=== PATIENT | female | born 1995 | race Caucasian/White ===

== ENCOUNTER 2021-04-01 18:15 | Emergency (ER) | payer SELFPAY ==
--- OUTSIDE RECORDS SUMMARY | 2021-04-01 18:17 | XMS REPORT | Continuity of Care Document ---
:1995 Author Organization [facility] t Address [address] [place] [address] Care Team Providers Name Role Phone Gallito Mendez Attending Clinician Problems This patient has no known problems. Allergies, Adverse Reactions, Alerts This patient has no known allergies or adverse reactions. Medications This patient has no known medications. Procedures This patient has no known procedures. Encounters Start End Encounter Admission Attending Care Care Encounter Source Date/Time Date/Time Type Type Clinicians Facility Department ID 2019-10-09 2019-10-09 Office LI Ro [id number] 16 12:55:55 13:10:55 Visit [facility] [id number] Surgical [id number] Specialti [id number] [address] Results This patient has no known results.
[2021-04-01 20:49] LABS: Urine Blood 3+ (Negative); Urine Glucose Negative (Negative); Urine Protein 1+ (Negative); Urine Specific Gravity 1.025 (1.005-1.030); Urine pH 5.5 (5.0-7.0)
[2021-04-01 21:33] LABS: Urine Bacteria <20 /HPF (<20); Urine Mucus MOD /HPF (NONE SEEN); Urine RBC 20-50 /HPF (NONE SEEN)
[2021-04-01 22:01] LABS: Urine Specific Gravity/Preg 1.025 (1.005-1.030)
[2021-04-01 22:40] LABS: Absolute Lymphocytes (CBC) 2.1 K/uL (0.7-4.9); Basophils % 0.5 % (0-1.3); Hematocrit 34.8 % (36.0-45.0); Lymphocytes % 23.6 % (15.3-44.8); MPV 9.3 fL (7.6-11.3); RBC Red Blood Cell Count 3.85 M/uL (3.86-4.86)
[2021-04-01 23:00] LABS: BUN Blood Urea Nitrogen 7 mg/dL (7-18); Bicarbonate 24 mmol/L (21-32); Glucose Level 95 mg/dL (74-106); Potassium 3.5 mmol/L (3.5-5.1); Sodium Level 138 mmol/L (136-145)
--- NOTE | 2021-04-01 23:25 | EDPHYS ---
Physician Documentation [facility] Name: Dmitry Rodriguez Age: 25 yrs Sex: Female : 1995 Arrival Date: 04/01/2021 Time: 18:15 Bed DIS11 Private MD: ED Physician Kevin Aguero HPI: 04/01 23:16 This 25 yrs old Female presents to ER via Ambulatory with complaints of deb Vaginal Bleeding, + Preg <12wks. 23:16 The patient presents to the emergency department with vaginal bleeding, that is light, deb that is moderate. The estimated gestational age is 7 weeks. course: care: private OB physician. Previous pregnancies: in previous pregnancies patient has had vaginal delivery. Associated signs and symptoms: The patient has no apparent associated signs or symptoms. The patient has not experienced similar symptoms in the past. 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 - Social history:: Smoking status: Patient denies any tobacco usage or history of. - Family history:: not pertinent. ROS: 23:16 Constitutional: Negative for fever, chills, and weight loss, Eyes: Negative for injury, deb pain, redness, and discharge, ENT: Negative for injury, pain, and discharge, Neck: Negative for injury, pain, and swelling, Cardiovascular: Negative for chest pain, palpitations, and edema, Respiratory: Negative for shortness of breath, cough, wheezing, and pleuritic chest pain, Abdomen/GI: Negative for abdominal pain, nausea, vomiting, diarrhea, and constipation, Back: Negative for injury and pain, MS/Extremity: Negative for injury and deformity, Skin: Negative for injury, rash, and discoloration, Neuro: Negative for headache, weakness, numbness, tingling, and seizure, Psych: Negative for depression, anxiety, suicide ideation, homicidal ideation, and hallucinations, Allergy/Immunology: Negative for hives, rash, and allergies, Endocrine: Negative for neck swelling, polydipsia, polyuria, polyphagia, and marked weight changes, Hematologic/Lymphatic: Negative for swollen nodes, abnormal bleeding, and unusual bruising. 23:16 : Positive for vaginal bleeding. Exam: 23:16 Constitutional: This is a well developed, well nourished patient who is awake, alert, deb and in no acute distress. Head/Face: Normocephalic, atraumatic. Eyes: Pupils equal round and reactive to light, extra-ocular motions intact. Lids and lashes normal. Conjunctiva and sclera are non-icteric and not injected. Cornea within normal limits. Periorbital areas with no swelling, redness, or edema. ENT: Nares patent. No nasal discharge, no septal abnormalities noted. Tympanic membranes are normal and external auditory canals are clear. Oropharynx with no redness, swelling, or masses, exudates, or evidence of obstruction, uvula midline. Mucous membranes moist. Neck: Trachea midline, no thyromegaly or masses palpated, and no cervical lymphadenopathy. Supple, full range of motion without nuchal rigidity, or vertebral point tenderness. No Meningismus. Chest/axilla: Normal chest wall appearance and motion. Nontender with no deformity. No lesions are appreciated. Cardiovascular: Regular rate and rhythm with a normal S1 and S2. No gallops, murmurs, or rubs. Normal PMI, no JVD. No pulse deficits. Respiratory: Lungs have equal breath sounds bilaterally, clear to auscultation and percussion. No rales, rhonchi or wheezes noted. No increased work of breathing, no retractions or nasal flaring. Abdomen/GI: Soft, non-tender, with normal bowel sounds. No distension or tympany. No guarding or rebound. No evidence of tenderness throughout. Back: No spinal tenderness. No costovertebral tenderness. Full range of motion. Skin: Warm, dry with normal turgor. Normal color with no rashes, no lesions, and no evidence of cellulitis. MS/ Extremity: Pulses equal, no cyanosis. Neurovascular intact. Full, normal range of motion. Neuro: Awake and alert, GCS 15, oriented to person, place, time, and situation. Cranial nerves II-XII grossly intact. Motor strength 5/5 in all extremities. Sensory grossly intact. Cerebellar exam normal. Normal gait. Psych: Awake, alert, with orientation to person, place and time. Behavior, mood, and affect are within normal limits. Vital Signs: 20:31 BP 124 / 79; Pulse 76; Resp 16; Temp 97.7; Pulse Ox 100% on R/A; Weight 70.31 kg (R); lp1 Height 5 ft. 5 in. (165.10 cm); Pain 2/10; 23:35 BP 105 / 59 RA Sitting (auto/reg); Pulse 72; Resp 16; Temp 98.1(TE); Pulse Ox 98% on tt3 R/A; 20:31 Body Mass Index 25.79 (70.31 kg, 165.10 cm) lp1 MDM: 22:57 Patient medically screened. deb 23:21 Differential diagnosis: threatened Ab. Data reviewed: vital signs, nurses notes, lab edb test result(s), radiologic studies, ultrasound. 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 Test interpretation: by ED physician or midlevel provider: ECG, plain radiologic studies. Counseling: I had a detailed discussion with the patient and/or guardian regarding: the historical points, exam findings, and any diagnostic results supporting the discharge/admit diagnosis, lab results, radiology results, the need for outpatient follow up, an OB/Gyne specialist. 04/01 20:49 Order name: Urine Dipstick-Ancillary; Complete Time: 22:58 EDNY 04/01 20:59 Order name: Urine Microscopic Only; Complete Time: 22:58 tt3 04/01 20:59 Order name: Urine Culture tt3 04/01 21:02 Order name: Urine --Ancillary (enter results) tt3 04/01 21:02 Order name: Urine --Ancillary; Complete Time: 22:58 EDNY 04/01 22:13 Order name: Abo/rh Typing; Complete Time: 23:25 1 04/01 20:34 Order name: Urine Dipstick-Ancillary (obtain specimen) 1 04/01 20:34 Order name: Urine Test (obtain specimen) 1 04/01 20:34 Order name: US Transvaginal Ob 1 04/01 22:13 Order name: Basic Metabolic Panel; Complete Time: 23:16 lp1 04/01 22:13 Order name: CBC with Diff; Complete Time: 22:58 lp1 04/01 22:13 Order name: IV Saline Lock lp1 04/01 22:13 Order name: Labs collected and sent lp1 04/01 22:13 Order name: NPO lp1 Administered Medications: No medications were administered Disposition Summary: 04/01/21 23:24 Discharge Ordered Location: Home deb Problem: new deb Symptoms: have improved deb Condition: Stable deb Diagnosis - Threatened deb - 8 weeks gestation of deb Followup: deb - With: Private Physician - When: 2 - 3 days - Reason: Recheck today's complaints, Continuance of care, Re-evaluation by your physician Followup: deb - With: Arie Ruiz MD - When: 2 - 3 days - Reason: Recheck today's complaints, Continuance of care, Re-evaluation by your physician Discharge Instructions: - Discharge Summary Sheet deb - Care deb - Threatened Miscarriage deb - Vaginal Bleeding During , First Trimester deb - First Trimester of , [id number] deb - First Trimester of deb - Threatened Miscarriage, [id number] deb Forms: - Medication Reconciliation Form deb - Thank You Letter deb - Antibiotic Education deb - Prescription Opioid Use deb Signatures: Dispatcher [employer] EDKevin Wellington MD MD cha Pena, Laura, RN RN lp1
--- NOTE | 2021-04-01 23:25 | ER ---
Nurse's Notes [facility] Name: Dmitry Rodriguez Age: 25 yrs Sex: Female : 1995 Arrival Date: 04/01/2021 Time: 18:15 Bed DIS11 Private MD: Diagnosis: Threatened ;8 weeks gestation of Presentation: 04/01 20:28 Chief complaint: Patient states: Vaginal bleeding that began about 1800 this evening, lp1 bright red, and brown; reports about 8 weeks ; Reports low back pain. Coronavirus screen: Client denies travel out of the [place] in the last 14 days. At this time, the client does not indicate any symptoms associated with coronavirus-19. Ebola Screen: No symptoms or risks identified at this time. Risk Assessment: Do you want to hurt yourself or someone else? Patient reports no desire to harm self or others. Onset of symptoms was April 01, 2021 at 18:00. 20:28 Method Of Arrival: Ambulatory lp1 20:28 Acuity: SUZY 3 lp1 20:31 Initial Sepsis Screen: Does the patient meet any 2 criteria? No. Patient's initial lp1 sepsis screen is negative. Does the patient have a suspected source of infection? No. Patient's initial sepsis screen is negative. Triage Assessment: 20:32 General: Appears in no apparent distress. Behavior is calm, cooperative. Pain: lp1 Complains of pain in lumbar area. : Reports vaginal bleeding that is bright red, moderate flow. 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 - Social history:: Smoking status: Patient denies any tobacco usage or history of. - Family history:: not pertinent. Screenin:31 Abuse screen: Denies threats or abuse. Denies injuries from another. Nutritional lp1 screening: No deficits noted. Tuberculosis screening: No symptoms or risk factors identified. Fall Risk None identified. Assessment: 23:41 Reassessment: pt seen by this RN at discharge pt is A\T\O x 4, resp unlabored, pt bb verbalized understanding of and agrees to plan of care discharge instructions given pt ambulated with steady gait to exit accompanied by family. Vital Signs: 20:31 BP 124 / 79; Pulse 76; Resp 16; Temp 97.7; Pulse Ox 100% on R/A; Weight 70.31 kg (R); lp1 Height 5 ft. 5 in. (165.10 cm); Pain 2/10; 23:35 BP 105 / 59 RA Sitting (auto/reg); Pulse 72; Resp 16; Temp 98.1(TE); Pulse Ox 98% on tt3 R/A; 20:31 Body Mass Index 25.79 (70.31 kg, 165.10 cm) lp1 ED Course: 18:15 Patient arrived in ED. mr 20:30 Triage completed. lp1 20:30 Arm band placed on. lp1 21:53 US Transvaginal Ob In Process Unspecified. EDHI 22:02 Kevin Aguero MD is Attending Physician. [facility] 23:24 Arie Ruiz MD is Referral Physician. [facility] 23:41 Patient has correct armband on for positive identification. bb 23:41 No provider procedures requiring assistance completed. bb 23:45 Patient did not have IV access during this emergency room visit. bb Administered Medications: No medications were administered Outcome: 23:24 Discharge ordered by . [facility] 23:41 Discharged to home ambulatory, with family. bb 23:41 Condition: stable 23:41 Discharge instructions given to patient, family, Instructed on discharge instructions, follow up and referral plans. Demonstrated understanding of instructions, follow-up care. 23:45 Patient left the ED. bb Signatures: Dispatcher [employer] Kevin Mares MD MD cha Rivera, Mary mr Radha Mack RN RN bb Jessica Whalen RN RN lp1 Devante Borden tt3 Corrections: (The following items were deleted from the chart) 20:31 20:28 Chief complaint: Patient states: Vaginal bleeding that began about 1800 this lp1 evening, bright red, and brown; reports about 8 weeks lp1
[2021-04-01 23:52] VITALS: BP 105/59; TEMP 98.1; O2SAT 98
--- NOTE | 2021-04-02 08:43 | RAD REPORT ---
EXAM DESCRIPTION: US - Transvaginal OB - 04/01/2021 9:53 pm CLINICAL HISTORY: VAGINAL BLEEDING COMPARISON: No comparisons FINDINGS: A single gestational sac is seen within the uterus. The shape of the sac is within normal limits for gestational age. Within the sac is a single pole with crown-rump length of 9 mm, cor relating to estimated gestational age of 7 weeks 0 days. Estimated date of delivery is 11/18/2021. Heart rate is 148 BPM. The placenta is not yet developed due to early gestational age. The maternal adnexa and left ovary are within normal limits. Normal Doppler blood flow was demonstrat ed to the left ovary. The right ovary is obscured by bowel gas. IMPRESSION: Single live early intrauterine gestation with estimated gestational age of 7 weeks 0 day s, TRIP 11/18/2021. The right ovary is obscured by bowel gas.
== END 2021-04-01 23:45 | disposition home or self-care (01) ==
LOC: ER 18:15
DX: O20.0 Threatened abortion (principal); Z3A.08 8 weeks gestation of pregnancy
CPT/HCPCS: 36415; 76817; 80048; 81003; 81015; 81025; 85025; 86900; 86901; 87086; 87088; 99283

== ENCOUNTER 2021-11-05 03:58 | Inpatient (IN) | payer OTHER ==
[2021-11-03 15:45] LABS: Absolute Lymphocytes (CBC) 1.7 K/uL (0.7-4.9); Hematocrit 32.6 % (36.0-45.0); Lymphocytes % 14.7 % (15.3-44.8); MPV 9.4 fL (7.6-11.3); RBC Red Blood Cell Count 3.79 M/uL (3.86-4.86)
[2021-11-03 15:47] LABS: Protime INR 0.96
--- NOTE | 2021-11-03 19:07 | PREOPHP ---
Date of Admission: 11/05/2021 History: A 26-year-old 2, para 1, previous for repeat section. Infection ; blood loss; anesthetic complications; injury to bladder, bowel, ureter; postoperative complications ; clots in legs; pneumonia discussed. The patient knows fully well. This does not constitute all th e possible problems that could occur during or following surgery. Family History: She has a grandparent with lung cancer. Maternal grandfather with diabetes. Past Medical History: No serious medical illnesses. Chlamydia in 2018. Allergies: NO ALLERGIES. Medications: No medications prior to admission, although she does admit she smokes THC occasionally and cigarettes occasionally. Physical Examination: HEENT: Clear pupils equal, round, reactive to light and accommodation. Conjunctivae well perfused. No oral, lingual, or buccal lesions. Chest: Clear. Heart: Without murmurs, thrills, heaves, or rubs. Breasts: Without masses on previous visits. Abdomen: Term size and effects. First baby was premature, weight 5 pounds 5 ounces. This was in ex cess of 9 pounds according to high-risk consultation and according to clinical exam. Cervix is close d. Baby is vertex still fairly high. Extremities: Clear without edema, cyanosis, or clubbing. Assessment/plan: She will be 39 weeks this Monday and we will Proceed with repeat section at that time. DANNIELLE/VAISHNAVI Voice ID: [id number]
[2021-11-03 23:03] LABS: RPR (Rapid Plasma Reagin) NON-REACT (NON-REACT)
[~2021-11-05 03:58] MED LIST: CEFAZOLIN 1 GM in NA CHLORIDE 0.9% 50 ML IVPB SCH; FAMOTIDINE 20 MG/2 ML VIAL IV ONE; METOCLOPRAMIDE 10 MG/2mL INJ IV SCH; NA CIT/CITRIC AC 30 ML ORAL UDC PO ONE; Ringers Lactate 1,000 ML IV PRN; Ringers Lactate 1,000 ML IV SCH
--- OUTSIDE RECORDS SUMMARY | 2021-11-05 04:00 | XMS REPORT | Continuity of Care Document ---
:1995 Author Organization [facility] t Address [address] [place] [address] Care Team Providers Name Role Phone ONEIDA_Yuli Attending Clinician Unavailable Gallito Mendez Attending Clinician LEE Admitting Clinician Unavailable Payers Payer Name Policy Type Policy Number Effective Date Expiration Date S ource Problems This patient has no known problems. Allergies, Adverse Reactions, Alerts This patient has no known allergies or adverse reactions. Medications This patient has no known medications. Procedures This patient has no known procedures. Encounters Start End Encounter Admission Attending Care Care Encounter Source Date/Time Date/Time Type Type Clinicians Facility Department ID 2021-03-18 2021-03-18 Outpatient [facility] [address] [place] 04:00:00 04:00:00 0729 [facility] 2019-10-09 2019-10-09 Office LI Ro [id number] 16 12:55:55 13:10:55 Visit [facility] [id number] Surgical [id number] Specialti [id number] [address] [place] Results This patient has no known results.
[2021-11-05 05:12] VITALS: BMI 32.4
[2021-11-05] MEDS ORDERED: CEFAZOLIN 2 GM in NA CHLORIDE 0.9% 100 ML IVPB ONE (06:00)
[2021-11-05] MEDS ORDERED: CEFAZOLIN 1 GM in NA CHLORIDE 0.9% 50 ML IVPB SCH (06:00)
[2021-11-05 06:02] LABS: Urine Appearance CLOUDY (Clear); Urine Bilirubin NEGATIVE (Negative); Urine Blood NEGATIVE (Negative); Urine Color YELLOW (Yellow); Urine Glucose NEGATIVE (Negative); Urine Protein NEGATIVE (Negative); Urine Urobilinogen 0.2 mg/dL (0.2-1.0); Urine pH 6.5 (5.0-7.0)
[2021-11-05] MEDS ORDERED: CEFAZOLIN SODIUM 1 GM/VIAL ONE (06:05)
[2021-11-05] MEDS ORDERED: NA CHLORIDE 0.9% 0 ML ONE (06:06)
[2021-11-05 06:09] LABS: Urine Microscopic Reflex ORDER UMIC
[2021-11-05 06:18] LABS: Urine Bacteria <20 /HPF (<20); Urine RBC <5 /HPF (NONE SEEN)
[2021-11-05] MEDS ORDERED: NA CHLORIDE 0.9% 100 ML ONE (06:31)
[2021-11-05 06:58] VITALS: O2SAT 99
[2021-11-05] MEDS ORDERED: METHYLERGONOVINE 0.2MG/ML AMP IM ONE (07:02)
[2021-11-05] MEDS ORDERED: CARBOPROST TROME 250 MCG/ML IM ONE (07:02)
[2021-11-05] MEDS ORDERED: BUPIVACAINE 0.75% (PF) 2 ML SP ONE (07:23)
[2021-11-05] MEDS ORDERED: OXYTOCIN 10 UNIT/ML ML ONE (07:23)
[2021-11-05] MEDS ORDERED: MORPHINE SULFATE/PF 1 MG/ML (10 ML AMP) ONE (07:23)
[2021-11-05] MEDS ORDERED: LIDOCAINE 1% MPF 5 ML VIAL ONE (07:25)
[2021-11-05] MEDS ORDERED: EPHEDRINE SULF 50 MG/ML VIAL ONE (07:41)
[2021-11-05] MEDS ORDERED: Phenylephrine HCl 10 MG/ML 1 ML VIAL ONE (08:09)
[2021-11-05] MEDS ORDERED: ONDANSETRON 4 MG (ODT) TAB PO PRN (08:25)
[2021-11-05] MEDS ORDERED: KETOROLAC 30 MG/ML INJ IV PRN (08:25)
[2021-11-05] MEDS ORDERED: ACETAMINOPHEN 500 MG TAB PO PRN ×2 (08:25)
[2021-11-05] MEDS ORDERED: IBUPROFEN 200 MG TAB PO PRN (08:25)
[2021-11-05] MEDS ORDERED: Oxycodone HCl/Acetaminophen 1 TAB TAB PO PRN (08:25)
[2021-11-05] MEDS ORDERED: BISACODYL 10 MG RECTAL SUPP PR PRN (08:25)
[2021-11-05] MEDS ORDERED: ONDANSETRON 4 MG/2 ML VIAL IV PRN ×2 (08:25→08:41)
[2021-11-05] MEDS ORDERED: DIPHENHYDRAMINE 25 MG TAB/CAP PO PRN (08:25)
--- NOTE | 2021-11-05 08:55 | OP ---
Surgeon: Arie Ruiz MD General Practice: Dr. García. Anesthesiologist: Dr. Julien. Indications: A 26-year-old female at 39 weeks. Repeat section. Full preoperativ e counseling concerning procedure including infection; blood loss; anesthetic complications; injury t o bladder, bowel, ureter; postoperative complications; clots in legs and pneumonia. The patient know s fully well that this does not constitute all the possible problems that could occur during or follo wing surgery. Anesthesia: Spinal block anesthesia. Procedure In Detail: After adequate prepping and draping, time-out was performed. At this point, in cision was created across the previous incision line. The incision was carried to the fascia and the fascia was incised transversely. The patient was noted to have a very thin fascia, but still fascia l development was performed. Anterior and posterior fascial planes were developed. Peritoneal defec t was seen and entered. Low transverse bladder flap developed. Low transverse uterine incision crea coral. An 8-pound 8-ounce male infant delivered without difficulties, Apgars 9 and 9. Cord blood and specimen obtained. Placenta removed manually. Uterus cleared of clot and blood and exteriorized. 0 .2 mg of Methergine IM was not given. IV drip Pitocin was sufficient. Estimated blood loss during t he procedure, 750 cc. Cervical os dilated with ring clamp. Uterus closed with a running lock stitch of 1 chromic followed by 2 [id number] stitches in the right angle for complete hemostasis. [place] betina replaced in the peritoneal cavity. Gutters cleared of clot and blood. Reinspection of suture li ne showed no further bleeding. The rectus muscles were reapproximated using 2 stitches with 0 Vicryl . The fascia was then closed using 1 Vicryl running from either angle to the midline. Subcutaneous tissue closed with 2-0 plain. Raffi used for the skin. The patient had been given 2 g of Ancef. Tolerated all procedures well. Transferred back to her room in good condition. Final Diagnoses: Repeat section, spinal block anesthesia. DANNIELLE/MODAbhijit Voice ID: [id number] Report ID: [id number]
[2021-11-05] MEDS ORDERED: D5LR 1,000 ML with OXYTOCIN 20 UNIT IV SCH ×2 (09:00)
[2021-11-05] MEDS: OXYTOCIN/LR 20 UNIT/1,000 ML BAG IV SCH (09:13)
[2021-11-05] MEDS: Oxycodone HCl/Acetaminophen 1 TAB TAB PO PRN ×2 (11:19→17:17)
[2021-11-05] MEDS ORDERED: NALOXONE 0.4 MG/ML VIAL SQ PRN ×2 (14:03→14:15)
[2021-11-05] MEDS ORDERED: PROMETHAZINE 25 MG TABLET PO PRN (14:04)
[2021-11-05] MEDS ORDERED: PROMETHAZINE INJ 25 MG/ML AMP IV PRN (14:16)
[2021-11-05] MEDS ORDERED: CEFAZOLIN/SWI 2gm 2 GM/20 ML SYR IV ONE (16:00)
[2021-11-05] MEDS ORDERED: D5LR 1,000 ML IV ONE (16:58)
[2021-11-06] MEDS: OXYTOCIN/LR 20 UNIT/1,000 ML BAG IV SCH (00:36)
[2021-11-06] MEDS: Oxycodone HCl/Acetaminophen 1 TAB TAB PO PRN (02:56)
[2021-11-06 07:09] VITALS: BP 109/55; TEMP 97.5
[2021-11-06] MEDS ORDERED: MAGNESIUM HYDROXIDE 8% 30 ML PO PRN (08:25)
[2021-11-06] MEDS ORDERED: METHYLERGONOVINE 0.2MG/ML AMP IM ONE (12:24)
--- NOTE | 2021-11-07 01:54 | DS ---
Date of Discharge: 11/06/2021 Hospital Course: Postoperatively, is doing exceptionally well, ambulated same day of surgery. She i s requesting to go home this afternoon. 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 Once the bab y's tests are done, if patient still wants to go home, we will let her go. We will call her in for s ome tramadol for analgesia. She is to call my office on Monday and see me. She already has her appo intment to see me on Monday for staple removal. She is to report any temperature elevation of 100 de grees or greater, severe pain, heavy bleeding, or any other type of abnormalities. H and H postop ex pected change. Lochia is normal. This morning, patient has absolutely no complaints. Wants to go h ome as stated. She has already had her Tdap shot. Rh positive, immune to Rubella. Final Diagnoses: Term intrauterine 39 weeks. Repeat section. Spinal block anest hesia. DANNIELLE/VAISHNAVI Voice ID: [id number] Report ID: [id number]
[2021-11-08 18:27] LABS: HBsAG Nonreactive (Nonreactive)
== END 2021-11-06 13:00 | disposition home or self-care (01) | DRG 788 ==
LOC: 2ND-WC 03:58
PROVIDERS: ADMIT Specialist; ATTEND Specialist
PROC: 10D00Z1 Extraction of Products of Conception, Low, Open Approach (ICD-10-PCS; principal; 2021-11-05 07:30)
DX: O34.211 Maternal care for low transverse scar from previous cesarean delivery (principal); Z3A.39 39 weeks gestation of pregnancy; Z37.0 Single live birth; Z20.822 Contact with and (suspected) exposure to COVID-19
CPT/HCPCS: 36415; 81003; 81015; 85014; 85025; 85610; 85730; 86592; 86850; 86900; 86901; 87340; 88307; J0690; J2210; J2370; J2405; J2550; J2590; J2765; J7120; J7121; U0003

== ENCOUNTER 2022-05-13 02:09 | Emergency (ER) | payer OTHER ==
--- OUTSIDE RECORDS SUMMARY | 2022-05-13 02:11 | XMS REPORT | Continuity of Care Document ---
:1995 Author Organization [facility] t Address [address] [place] [address] Care Team Providers Name Role Phone LEE Attending Clinician Unavailable Nir Mendez Attending Clinician LEE Admitting Clinician Unavailable [...] Facility Department ID 2021-03-18 2021-03-18 Outpatient [facility]EE [facility] [id number]- [address] [place] 04:00:00 04:00:00 [facility] 2019-10-09 2019-10-09 Office LI Ro [id number] 16 12:55:55 13:10:55 Visit [facility] [id number] Surgical [id number] Specialti [id number] [address] [place] Results This patient has no known results.
[2022-05-13 02:43] LABS: Urine Blood Negative (Negative); Urine Glucose Negative (Negative); Urine Protein Negative (Negative); Urine Specific Gravity >=1.030 (1.005-1.030); Urine pH 5.5 (5.0-7.0)
[2022-05-13 03:23] LABS: Absolute Lymphocytes (CBC) 2.9 K/uL (0.7-4.9); Lymphocytes % 23.5 % (15.3-44.8); MCV 87.7 fL (80-100); MPV 8.5 fL (7.6-11.3); RBC Red Blood Cell Count 4.45 M/uL (3.86-4.86)
[2022-05-13] MEDS ORDERED: ONDANSETRON 4 MG/2 ML VIAL ONE (03:24)
[2022-05-13] MEDS ORDERED: HYDROMORPHONE HCL 0.5 MG/0.5 ML INJ ONE (03:24)
[2022-05-13 03:36] LABS: Albumin 4.1 g/dL (3.4-5.0); Bilirubin Total 0.2 mg/dL (0.2-1.0); Potassium 3.6 mmol/L (3.5-5.1); Protein, Total 7.7 g/dL (6.4-8.2)
--- NOTE | 2022-05-13 04:53 | ER ---
Nurse's Notes [facility] Name: Dmitry Rodriguez Age: 26 yrs Sex: Female : 1995 Arrival Date: 05/13/2022 Time: 02:12 Bed Treatment Private MD: Diagnosis: Right upper quadrant pain;Nausea with vomiting, unspecified Presentation: 05/13 02:25 Chief complaint: Patient states: "I am pretty sure it is my gallbladder. I was suppose tw5 to see Dr. Jo today, but he had an emergency and had to reschedule me to Monday. The pain is only getting worse and I cannot make it to Monday. ". Coronavirus screen: Vaccine status: Patient reports being unvaccinated. Ebola Screen: Patient negative for fever greater than or equal to 101.5 degrees Fahrenheit, and additional compatible Ebola Virus Disease symptoms Patient denies exposure to infectious person. Patient denies travel to an Ebola-affected area in the 21 days before illness onset. Initial Sepsis Screen: Does the patient meet any 2 criteria? No. Patient's initial sepsis screen is negative. Does the patient have a suspected source of infection? No. Patient's initial sepsis screen is negative. Risk Assessment: Do you want to hurt yourself or someone else? Patient reports no desire to harm self or others. Onset of symptoms was May 12, 2022 at 22:00. 02:25 Method Of Arrival: Ambulatory tw5 02:25 Acuity: SUZY 3 tw5 Triage Assessment: 02:29 General: Appears uncomfortable, Behavior is restless. Pain: Complains of pain in right tw5 upper quadrant Pain currently is 10 out of 10 on a pain scale. GI: Reports lower abdominal pain. 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 - Social history:: Smoking status: Patient denies any tobacco usage or history of. Screenin:19 Abuse screen: Denies threats or abuse. Denies injuries from another. Nutritional lg3 screening: No deficits noted. Tuberculosis screening: No symptoms or risk factors identified. Fall Risk None identified. Assessment: 03:19 General: Appears distressed, uncomfortable, Behavior is cooperative, crying. Pain: lg3 Complains of pain in abdomen and right upper quadrant Pain currently is 10 out of 10 on a pain scale. Noted to be crying, grimacing, guarding, moaning, resistant to movement, restless. Neuro: No deficits noted. Level of Consciousness is awake, alert, obeys commands, Oriented to person, place, time, situation. Cardiovascular: No deficits noted. Denies chest pain, shortness of breath, Capillary refill < 3 seconds Clubbing of nail beds is absent JVD is absent Patient's skin is warm and dry. Respiratory: No deficits noted. Airway is patent Trachea midline Respiratory effort is even, unlabored, Respiratory pattern is regular, symmetrical, Breath sounds are clear bilaterally. GI: Abdomen is round non-distended, Bowel sounds present X 4 quads. Abd is soft X 4 quads Abdomen is tender to palpation in right upper quadrant Guarding noted in right upper quadrant Reports upper abdominal pain, cramping, epigastric pain, nausea. : No deficits noted. No signs and/or symptoms were reported regarding the genitourinary system. EENT: No deficits noted. No signs and/or symptoms were reported regarding the EENT system. Derm: No deficits noted. No signs and/or symptoms reported regarding the dermatologic system. Skin is intact, is healthy with good turgor, Skin is dry, Skin is normal, Skin temperature is warm. Musculoskeletal: No deficits noted. No signs and/or symptoms reported regarding the musculoskeletal system. Circulation, motion, and sensation intact. Range of motion: intact in all extremities. 05:23 Reassessment: Patient appears in no apparent distress at this time. No changes from lg3 previously documented assessment. Patient and/or family updated on plan of care and expected duration. Pain level reassessed. Patient is alert, oriented x 3, equal unlabored respirations, skin warm/dry/pink. Patient states symptoms have improved. Vital Signs: 02:25 BP 116 / 70; Pulse 71; Resp 18; Temp 97.6; Pulse Ox 100% on R/A; Weight 76.2 kg; Height tw5 5 ft. 5 in. (165.10 cm); Pain 10/10; 05:23 BP 121 / 74; Pulse 68; Resp 17 S; Pulse Ox 100% on R/A; lg3 02:25 Body Mass Index 27.96 (76.20 kg, 165.10 cm) tw5 ED Course: 02:12 Patient arrived in ED. bp1 02:19 Gerardo Macdonald DO is Attending Physician. ms3 02:29 Triage completed. tw5 03:19 Patient has correct armband on for positive identification. Bed in low position. Call lg3 light in reach. Side rails up X 1. Client placed on continuous cardiac and pulse oximetry monitoring. NIBP monitoring applied. Door closed. Noise minimized. Warm blanket given. 03:19 Inserted saline lock: 20 gauge in left antecubital area, using aseptic technique. Blood lg3 collected. 03:21 Arm band placed on. lg3 03:25 Lisa Lara, PARAM is Primary Nurse. lg3 03:45 Abdomen Exam Limited In Process Unspecified. EDMS 04:52 Elias Jo MD is Referral Physician. ms3 05:23 No provider procedures requiring assistance completed. IV discontinued, intact, lg3 bleeding controlled, No redness/swelling at site. Pressure dressing applied. Administered Medications: 03:18 Drug: Zofran (Ondansetron) 4 mg Route: IVP; Site: left antecubital; lg3 05:25 Follow up: Response: No adverse reaction; Nausea is decreased lg3 03:18 Drug: Dilaudid (HYDROmorphone) 0.5 mg Route: IVP; Site: left antecubital; lg3 05:25 Follow up: Response: No adverse reaction; Marked relief of symptoms; Pain is decreased lg3 Medication: 05:24 VIS not applicable for this client. lg3 Outcome: 04:52 Discharge ordered by . ms3 05:24 Discharged to home ambulatory. lg3 05:24 Condition: stable 05:24 Discharge instructions given to patient, Instructed on discharge instructions, follow up and referral plans. medication usage, Demonstrated understanding of instructions, follow-up care, medications, Prescriptions given X 1. 05:24 Patient left the ED. lg3 Signatures: Dispatcher [employer] EDMS Lisa Lara RN RN lg3 Gerardo Macdonald DO DO ms3 Gunjan Riggins Tiffany tw5 Corrections: (The following items were deleted from the chart) 02:29 02:29 Home Meds: Adderall 10 mg Oral tab 1 tab once daily; PMHx: ADD/ADHD;
--- NOTE | 2022-05-13 04:53 | EDPHYS ---
Physician Documentation [facility] Name: Dmitry Rodriguez Age: 26 yrs Sex: Female : 1995 Arrival Date: 05/13/2022 Time: 02:12 Bed Treatment Private MD: ED Physician Gerardo Macdonald HPI: 05/13 02:42 This 26 yrs old Female presents to ER via Ambulatory with complaints of Abdominal Pain, ms3 Nausea/Vomiting. 02:42 26-year-old female with no past medical history presents for right upper quadrant ms3 abdominal pain that began in early March. Patient states the pain occurs approximately 2 times a week and last about 4 hours. Patient states tonight the pain is lasted longer than 4 hours. Patient rates the pain a 10/10. Patient states vomiting makes the pain better. Patient denies alleviating factors. Patient endorses chills, nausea, vomiting. Patient denies fever.. 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 - Social history:: Smoking status: Patient denies any tobacco usage or history of. ROS: 02:42 Constitutional: Negative for fever, and chills. Eyes: Negative for injury, pain, ms3 redness, and discharge, Neck: Negative for injury, pain, and swelling, Cardiovascular: Negative for chest pain, and palpitations. Respiratory: Negative for shortness of breath, cough, wheezing, and pleuritic chest pain. Exam: 02:54 Constitutional: This is a well developed, well nourished patient who is awake, alert, ms3 and in no acute distress. Head/Face: Normocephalic, atraumatic. ENT: Nares patent. No nasal discharge, no septal abnormalities noted. Tympanic membranes are normal and external auditory canals are clear. Oropharynx with no redness, swelling, or masses, exudates, or evidence of obstruction, uvula midline. Mucous membranes moist. Neck: Trachea midline, no cervical lymphadenopathy. Supple, full range of motion without nuchal rigidity, or vertebral point tenderness. No Meningismus. Chest/axilla: Normal chest wall appearance and motion. Nontender with no deformity. Cardiovascular: Regular rate and rhythm with a normal S1 and S2. No gallops, murmurs, or rubs. Normal PMI, no JVD. No pulse deficits. Respiratory: Lungs have equal breath sounds bilaterally, clear to auscultation and percussion. No rales, rhonchi or wheezes noted. No increased work of breathing, no retractions or nasal flaring. Skin: Warm, dry with normal turgor. Normal color with no rashes, no lesions, and no evidence of cellulitis. MS/ Extremity: Pulses equal, no cyanosis. Neurovascular intact. Full, normal range of motion. Psych: Awake, alert, with orientation to person, place and time. Behavior, mood, and affect are within normal limits. 02:54 Abdomen/GI: Inspection: abdomen appears normal, Bowel sounds: normal, Palpation: moderate abdominal tenderness, in the right upper quadrant. Vital Signs: 02:25 BP 116 / 70; Pulse 71; Resp 18; Temp 97.6; Pulse Ox 100% on R/A; Weight 76.2 kg; Height tw5 5 ft. 5 in. (165.10 cm); Pain 10/10; 05:23 BP 121 / 74; Pulse 68; Resp 17 S; Pulse Ox 100% on R/A; lg3 02:25 Body Mass Index 27.96 (76.20 kg, 165.10 cm) tw5 MDM: 02:42 Patient medically screened. ms3 04:54 Data reviewed: vital signs, nurses notes, lab test result(s), radiologic studies, ms3 ultrasound, and as a result, I will discharge patient. Counseling: I had a detailed discussion with the patient and/or guardian regarding: the historical points, exam findings, and any diagnostic results supporting the discharge/admit diagnosis, lab results, radiology results, the need for outpatient follow up. 05:14 Special discussion: I discussed with the patient/guardian in detail that at this point ms3 there is no indication for admission to the hospital. It is understood, however, that if the symptoms persist or worsen the patient needs to return immediately for re-evaluation. ED course: Discussed transfer for HIDA scan as hospital is at capacity and patient declines. Patient states that she would like to be discharged and she will follow up with Dr Jo in 1-2 days. Patient given Rx for Zofran. Patient understands/ agrees with plan. All questions answered.. 05/13 02:43 Order name: Urine Dipstick-Ancillary; Complete Time: 03:05 EDMS 05/13 03:17 Order name: Comprehensive Metabolic Panel; Complete Time: 03:38 EDMS 05/13 02:34 Order name: IV Saline Lock; Complete Time: 03:13 ms3 05/13 02:34 Order name: Labs collected and sent; Complete Time: 03:13 ms3 05/13 03:17 Order name: Lipase; Complete Time: 03:38 EDMS 05/13 03:17 Order name: CBC with Automated Diff; Complete Time: 03:38 EDMS 05/13 03:24 Order name: Abdomen Exam Limited EDMS 05/13 02:34 Order name: Urine Dipstick-Ancillary (obtain specimen); Complete Time: 02:48 ms3 05/13 02:34 Order name: Urine Test (obtain specimen); Complete Time: 02:48 ms3 Administered Medications: 03:18 Drug: Zofran (Ondansetron) 4 mg Route: IVP; Site: left antecubital; lg3 05:25 Follow up: Response: No adverse reaction; Nausea is decreased lg3 03:18 Drug: Dilaudid (HYDROmorphone) 0.5 mg Route: IVP; Site: left antecubital; lg3 05:25 Follow up: Response: No adverse reaction; Marked relief of symptoms; Pain is decreased lg3 Disposition Summary: 05/13/22 04:52 Discharge Ordered Location: Home ms3 Condition: Stable ms3 Diagnosis - Right upper quadrant pain ms3 - Nausea with vomiting, unspecified ms3 Followup: ms3 - With: Elias Jo MD - When: 1 - 2 days - Reason: Recheck today's complaints Discharge Instructions: - Discharge Summary Sheet ms3 - Abdominal Pain, Adult ms3 - Nausea and Vomiting, Adult ms3 Forms: - Medication Reconciliation Form ms3 - Thank You Letter ms3 - Antibiotic Education ms3 - Prescription Opioid Use ms3 Prescriptions: - ondansetron 4 mg Oral tablet,disintegrating - place 1 tablet by TRANSLINGUAL route every 6 hours; 20 tablet; Refills: 0, ms3 Product Selection Permitted Signatures: Dispatcher [employer] Lisa Hearn, PARAM RN lg3 Gerardo Macdonald, DO [place] ms3 Sheeba Sanchez tw5 Lilliana Haile PA-C PAAkila sb4 Corrections: (The following items were deleted from the chart) 02:29 Home Meds: Adderall 10 mg Oral tab 1 tab once daily; 02:29 PMHx: ADD/ADHD;
--- NOTE | 2022-05-13 12:08 | RAD REPORT ---
EXAM DESCRIPTION: US - Abdomen Exam Limited - 05/13/2022 3:43 am CLINICAL HISTORY: The patient is 26 years old and is Female; RUQ PAIN TECHNIQUE: Real-time ultrasound of the right upper quadrant with image documentation. COMPARISON: 05/09/2022 gallbladder ultrasound FINDINGS: LIVER: Hepatopetal portal venous flow. No intrahepatic bile duct dilation. GALLBLADDER: Small, shadowing echogenic focus within the gallbladder fundus is nonspecific, and cou ld reflect an adhered stone or calcified plaque. Small-volume sludge demonstrated within the gallbladder lumen. No echogenic stones. No gallbl adder wall thickening. No pericholecystic free fluid. COMMON BILE DUCT: Unremarkable as visualized. No stones. No dilation. Common bile duct measures 0.3 cm in diameter. PANCREAS: Unremarkable as visualized. RIGHT KIDNEY: Unremarkable. No stones. No solid mass. No hydronephrosis. IMPRESSION: Gallbladder sludge is noted with no definite gallstones or sonographic findings to sugge st acute cholecystitis. Further evaluation by HIDA scan could be performed if clinically indicated to evaluate for biliary dy skinesia. Electronically signed by: Jose Oliva MD 05/13/2022 4:20 AM CDT Due to temporary technical issues with the PACS/Fluency reporting system, reports are being signed by the in house radiologists without review as a courtesy to insure prompt reporting. The interpreting radiologist is fully responsible for the content of the report.
[2022-05-14 15:03] VITALS: TEMP 97.6; O2SAT 100
[2022-05-14 15:05] VITALS: BP 121/74
== END 2022-05-13 05:24 | disposition home or self-care (01) ==
LOC: ER 02:09
DX: R10.11 Right upper quadrant pain (principal); R11.2 Nausea with vomiting, unspecified
CPT/HCPCS: 85025; 36415; 81003; 83690; 80053; 76705; 96375; 96374; 99284; J1170; J2405